=== PATIENT | female | born 1945 | race Caucasian/White ===

== ENCOUNTER 2016-12-18 17:03 | Emergency (ER) | payer MEDICARE ==
[~2016-12-18] VITALS: Ht 170.2 cm; Wt 72.7 kg
[2016-12-18 17:08] VITALS: BP 142/78; PULSE 61; RESP 18; O2SAT 98
--- NOTE | 2016-12-18 18:36 | ED.REPORT ---
HPI-General Illness Date of Service Dec 18, 2016 ED Provider: Quinton Noguera DO This is a very pleasant 71-year-old female who presents with 7 days of bilateral flank pain, fever and malodorous urine. She also complains of fever and generalized malaise. Secondary complaint includes eye pain in the left eye she has had since ocular surgery. Nursing Notes Stated Complaint: BACK PAIN, HEARTBURN, CHILLS, BODY ACHES, SOB Chief Complaint: General Complaint Nursing Notes Reviewed: Yes Allergies: Coded Allergies: Sulfa (Sulfonamide Antibiotics) (Verified Allergy, Unknown, 12/05/13) tea tree (Verified Allergy, Unknown, 12/05/13) Uncoded Allergies: EGGS (Allergy, Unknown, 12/05/13) General Time Seen by MD: 18:35 Chief Complaint Abdominal pain Hx Obtained From: Patient Arrived By: Walk-in Sudden in Onset?: Yes Location: : Abdomen Quality: Painful Radiation: : Back Recent Healthcare: No recent hospitalization Past Medical History Past Medical History Reports: Hypertension Smoking History Unknown if Ever Smoker Ambulatory Status Independent Review of Systems +body aches +heartburn +odorous urine Full Review of Systems Constitutional: Reports: Chills, Fatigue, Malaise Eyes: Reports: Eye pain right Respiratory: Reports: Non-productive cough, Shortness of breath Cardiovascular: Reports: Chest pain GI: Reports: Abdominal pain, Denies: Diarrhea, Nausea, Vomiting Female: Reports: Dysuria, Flank pain Skin: Denies Itching, Denies Rash Neurologic: Reports: Headache Complete sys rev & neg: except as marked. Physical Exam Vital Signs Vital Signs Date Time Temp Pulse Resp B/P Pulse Ox O2 Delivery O2 Flow Rate FiO2 12/18/16 23:45 71 20 138/72 99 Room Air 12/18/16 17:08 36.9 61 18 142/78 98 Room Air Initial VS: Reviewed General/Constitutional: Awake, Alert Head / Eyes: Atraumatic, Normocephalic, PERRL, EOMI Respiratory / Chest: Atraumatic, Breath sounds NL, Breath sounds = bilat, No respiratory distress Cardiovascular: Heart rate NL, Regular rhythm, Heart sounds NL Abdomen: Atraumatic, Soft Tenderness/Guarding/Rebound: Positive: Tender LLQ... Skin: Atraumatic, Color NL, No rash, Warm, Dry Neurologic: Oriented X3, Speech NL Psychiatric: Affect NL, Mood NL Interpretation & Diagnostics Lab Results Interpretation Result Diagram: 12/18/16 1855 12/18/16 1855 Test 12/18/16 18:54 12/18/16 18:55 Urine Color Yellow (YELLOW) Urine Appearance Hazy (CLEAR,HAZY) Urine pH 6.0 (5.0-8.0) Urine Specific Waterproof 1.020 (1.003-1.035) Urine Protein Negativemg/dL (NEG,TRACE) Urine Glucose (UA) Negativemg/dL (NEGATIVE) Urine Ketones Tracemg/dL (NEGATIVE) Urine Occult Blood Negative (NEGATIVE) Urine Nitrite Negative (NEGATIVE) Urine Bilirubin Negative (NEGATIVE) Urine Urobilinogen Normalmg/dL (NORMAL) Urine Leukocyte Esterase Negative (NEGATIVE) Urine RBC 0-2/hpf (0-2) Urine WBC 0-5/hpf (0-5) Urine Epithelial Cells Moderate/hpf (NONE-MOD) Urine Crystals None seen (NONE SEEN) Urine Bacteria Moderate/hpf (NONE-FEW) Urine Hyaline Casts None/lpf (NONE) Urine Granular Casts None seen (NONE SEEN) Urine Waxy Casts None seen (NONE SEEN) Urine Red Blood Cell Casts None seen (NONE SEEN) Urine White Blood Cell Casts None seen (NONE SEEN) Urine Mucus None seen (None Seen) Urine Trichomonas None seen (NONE SEEN) Urine Yeast None (NONE SEEN) Urinalysis Comment None Urine Culture Reflexed Indicated White Blood Count 7.9th/mm3 (3.8-10.1) Red Blood Count 4.10mil/mm3 (3.90-5.20) Hemoglobin 12.9g/dL (12.0-15.6) Hematocrit 39.5% (35.0-46.0) Mean Corpuscular Volume 96.3fL (81-100) Mean Corpuscular Hemoglobin 31.5pg (27.0-35.0) Mean Corpuscular Hemoglobin Concent 32.7% (32.0-37.0) Red Cell Distribution Width 12.8% (12.3-15.4) Platelet Count 227bil/L (150-400) Neutrophils (%) (Auto) 53.6% (40-74) Lymphocytes (%) (Auto) 29.9% (14-46) Monocytes (%) (Auto) 7.7% (4-12) Eosinophils (%) (Auto) 8.1% (0-5) Basophils (%) (Auto) 0.4% (0-3) Prothrombin Time 9.5sec (8.1-12.5) Prothromb Time International Ratio 0.89ratio Sodium Level 141mEq/L (134-144) Potassium Level 3.7mEq/L (3.5-5.2) Chloride Level 101mEq/L (97-108) Carbon Dioxide Level 27mmol/L (18-29) Blood Urea Nitrogen 21mg/dL (8-27) Creatinine 0.91mg/dL (0.57-1.00) Estimat Glomerular Filtration Rate 88mL/min (>59) Glucose Level 98mg/dL (60-99) Calcium Level 9.0mg/dL (8.5-10.1) Magnesium Level 2.1mg/dL (1.6-2.6) Total Bilirubin 0.2mg/dL (0.0-1.2) Aspartate Amino Transf (AST/SGOT) 16U/L (0-50) Alanine Aminotransferase (ALT/SGPT) 17U/L (0-32) Alkaline Phosphatase 87U/L (25-165) Troponin T < 0.010ug/L (0.0-0.011) Total Protein 7.0g/dL (6.4-8.4) Albumin 4.2g/dL (3.4-5.0) Lipase 69U/L (13-60) Thyroid Stimulating Hormone (TSH) 3.580uIU/mL (0.450-4.500) Hold Leal Top Tube Received (Received) ECG Interpretation Time: 19:01 Interpreted by: ED physician Normal ECG Interpretation: Normal rate (53), Normal sinus rhythm X-Ray Chest Interpretation Chest Xray Interpretation: IMPRESSION: No acute or active disease is seen in the upright portable chest. Dictated by: Modesto Prado M.D. on 12/18/2016 at 19:20 Approved by: Modesto Prado M.D. on 12/18/2016 at 19:20 View: Portable, 1 view Interpretation / Wet Read by: Interpret - Radiologist CT Abd / Pelvis Interpretation IMPRESSION: 1. Cause of left lower quadrant pain is not identified. No masses, stones, obstructions, or inflammations are seen. Dictated by: Modesto Prado M.D. on 12/18/2016 at 21:32 Approved by: Modesto Prado M.D. on 12/18/2016 at 21:38 Interpretation / Wet Read by: Interpret - Radiologist Re-Eval/Medical Decision Med Decision/Clinical Course Several issues. Reflux treated with Protonix with complete relief. ID ruled out with EKG and troponin. Pyelonephritis evident with the flank pain and malodorous urine and abnormal urine sample. This was treated with ceftriaxone. CT scan her abdomen pelvis was otherwise reassuring. Chest x-ray was normal. At discharge her vitals were stable. She felt great. No further symptoms. We will place her on a course of antibiotics and pain medication. Recommend close outpatient follow-up. Time of Eval: 22:55 Re-Evaluation/Progress Note: Discussed results and plan for discharge. Patient understands and agrees to plan. All questions were addressed. Counseled Regarding: Diagnosis, Lab results, Need for follow-up, When/why to return to ED Discharge & Departure Primary Impression: Kidney infection Additional Impression: Acid reflux Esophagitis presence: esophagitis presence not specified Qualified Code: K21.9 - Gastro-esophageal reflux disease without esophagitis Disposition: Home Discharge Condition All VS Reviewed: Yes Condition: Stable Patient Instructions: Kidney Infection (ED) Additional Instructions: Your CT scan was normal and reassuring. Your urinalysis showed that you have a kidney infection. Take Omnicef 2x a day for 10 days. Protonix daily for the next 4 weeks. You can take 1-2 Kent every 6 hours as needed for pain. Do not combine with Acetaminophen. Do not drink alcohol or drive while taking the pain medication as it can have a sedating effect. Be sure to drink plenty of fluids. Follow up with your primary care physician next week. Return to the emergency department if you develop any new or concerning symptoms. Referrals: Clyde Del Castillo MD (PCP) Jasmyn Attestation Portions of this note were transcribed by Claire García. I, Dr. Noguera personally performed the history, physical exam and medical decision-making; I reviewed and confirmed the accuracy of the information in the transcribed note. Signed by: Jasmyn Jimenez, 12/18/16 copies to: Clyde Del Castillo MD, Todd P DO Dec 18, 2016 18:36 Miriam García Dec 18, 2016 18:43
[2016-12-18 19:05] LABS: BASOPHILS % (AUTO) 0.4 % (0-3); EOSINOPHILS % (AUTO) 8.1 % (0-5); MONOCYTES % (AUTO) 7.7 % (4-12); Mean Corpuscular Hemoglobin 31.5 pg (27.0-35.0); Mean Corpuscular Volume 96.3 fL (81-100); NEUTROPHILS % (AUTO) 53.6 % (40-74); Platelet Count 227 bil/L (150-400)
[2016-12-18 19:09] LABS: APPEARANCE,URINE HAZY (CLEAR,HAZY); COLOR,URINE YELLOW (YELLOW); OCCULT BLOOD,URINE NEGATIVE (NEGATIVE); UROBILINOGEN,URINE NORMAL (NORMAL)
[2016-12-18 19:20] LABS: INR 0.89 ratio
--- NOTE | 2016-12-18 19:22 | DRSVH ---
PROCEDURE: X-RAY CHEST ONE VIEW, PORTABLE ([id number]) INDICATIONS: dyspnea TECHNIQUE: One view of the chest was acquired. COMPARISON: None. FINDINGS: Surgical changes and devices: hall monitor leads are seen over the chest. Lungs and pleura: No pleural effusions or pneumothorax. Lungs are clear. Mediastinum: Mediastinal contours appear normal. Heart size is normal. Bones and chest wall: No suspicious bony lesions. Overlying soft tissues appear unremarkable. IMPRESSION: No acute or active disease is seen in the upright portable chest. Dictated by: Modesto Prado M.D. on 12/18/2016 at 19:20 Approved by: Modesto Prado M.D. on 12/18/2016 at 19:20
[2016-12-18 19:29] LABS: TROPONIN T < 0.010 ug/L (0.0-0.011)
[2016-12-18 19:37] LABS: Lipase 69 U/L (13-60); Magnesium 2.1 mg/dL (1.6-2.6)
[2016-12-18] MEDS ORDERED: Iohexol 300 mg/mL 30 mL Inj PO ONE (19:45)
--- NOTE | 2016-12-18 21:39 | DRSVH ---
PROCEDURE: CT ABDOMEN AND PELVIS WITH CONTRAST ([id number]) INDICATIONS: llq pain TECHNIQUE: After the administration of oral and intravenous contrast, 5 mm thick sections acquired from the diap hragms to the symphysis. 5 mm thick coronal and sagittal reformats were performed. For radiation do se reduction, the following was used: automated exposure control, adjustment of mA and/or kV accordi ng to patient size. COMPARISON: None. FINDINGS: Image quality: Excellent. ABDOMEN: Lung bases: Lung bases are clear. Heart size is normal. Solid organs: Liver and spleen are normal in size and enhancement. Gallbladder is not seen and pres umably has been removed. Biliary system is non-dilated. Pancreas enhances normally. No adrenal nod ules. Kidneys are normal in size and enhancement, without hydronephrosis. Peritoneum and bowel: Stomach, small bowel, and colon loops are normal in caliber and wall thickness . No free fluid or air. No up in exit is identified. Scattered diverticula are present. No inflammat ion is seen. Nodes and vessels: No retroperitoneal or mesenteric adenopathy. Aorta and inferior vena cava are no rmal in caliber. Miscellaneous: No ventral hernias. PELVIS: Genitourinary: Bladder wall thickness is normal. Miscellaneous: No inguinal hernias or adenopathy. Bones: No suspicious bony lesions. No vertebral body compression fractures. IMPRESSION: 1. Cause of left lower quadrant pain is not identified. No masses, stones, obstructions, or inflammat ions are seen. Dictated by: Modesto Prado M.D. on 12/18/2016 at 21:32 Approved by: Modesto Prado M.D. on 12/18/2016 at 21:38
[2016-12-18] MEDS ORDERED: cefTRIAXone Inj 2,000 MG in Dextrose 5% Minibag Plus 50 ML IV ONE (22:25)
[2016-12-18] MEDS ORDERED: 0.9% Sodium Chloride 1,000 ML IV ONE (22:25)
[2016-12-18 23:45] VITALS: BP 138/72; PULSE 71; RESP 20; O2SAT 99
== END 2016-12-18 23:35 | disposition home or self-care (01) ==
LOC: SED 17:03
DX: N15.9 Renal tubulo-interstitial disease, unspecified (principal); K21.9 Gastro-esophageal reflux disease without esophagitis; I10 Essential (primary) hypertension; Z88.2 Allergy status to sulfonamides
CPT/HCPCS: 36415; 71010; 74177; 80053; 81000; 83690; 83735; 84443; 84484; 85025; 85610; 87086; 87088; 93005; 96365; 99285; J0696; J7030; Q9967